=== PATIENT | female | born 1950 | race Caucasian/White ===

== ENCOUNTER → 2023-06-17 12:29 | Outpatient (REF) | payer MEDICARE, BC, SELFPAY | LOC: RAD 12:29 | PROVIDERS: ATTENDING PHYSICIAN Nurse Practitioner Family | DX: Z04.3 Encounter for examination and observation following other accident (principal); W00.9XXA Unspecified fall due to ice and snow, initial encounter; M47.816 Spondylosis without myelopathy or radiculopathy, lumbar region | CPT/HCPCS: 72110; 72220 ==

== ENCOUNTER → 2023-09-24 15:26 | Outpatient (REF) | payer MEDICARE, BC, SELFPAY | LOC: WDC 15:26 | PROVIDERS: ATTENDING PHYSICIAN Nurse Practitioner Family; FAMILY PHYSICIAN Family Medicine | DX: Z12.31 Encounter for screening mammogram for malignant neoplasm of breast (principal) | CPT/HCPCS: 77063; 77067 ==

== ENCOUNTER 2024-07-02 10:45 | Emergency (ER) | payer MEDICARE, BC, SELFPAY ==
[2024-07-02 11:07] VITALS: BP 144/80
[2024-07-02 11:31] LABS: % Basophils 0.2 % (0-2); % Eosinophils 0.8 % (0-6); % Immature Granulocytes 0.3 % (0-0.5); % Lymphocytes 11.6 % (20.5-51.1); % Monocytes 7.3 % (1.7-9.3); % Neutrophils 79.8 % (42.2-75.2); Absolute Eosinophils 0.1 10^3/uL (0-0.7); Absolute Monocytes 0.6 10^3/uL (0.1-0.6); Hemoglobin 13.4 g/dL (12.0-16.0); Mean Corp Hgb Conc. 33.5 g/dL (33.0-37.0); Mean Corpuscular Hgb 31.3 pg (27.0-31.0); Mean Corpuscular Volume 93.5 fL (81.0-99.0); Nucleated Red Blood Cells % 0 %; Platelet Count 198 10^3/uL (130-400); Red Blood Cell Count 4.28 10^6/uL (4.20-5.40); Red Cell Dist. Width 12.3 % (11.5-14.5); White Blood Cell Count 8.7 10^3/uL (4.8-10.8)
[2024-07-02 11:36] LABS: Urine Albumin Negative (Neg - Trace); Urine Bilirubin Negative (Negative); Urine Character Clear (Clear); Urine Color Yellow; Urine Glucose Negative (Negative); Urine Ketone Negative (Negative); Urine Leukocyte Negative (Negative); Urine Nitrite Negative (Negative); Urine Occult Blood 2+ (Negative); Urine Urobilinogen Negative (Neg - 1+)
[2024-07-02 11:44] LABS: ALT (SGPT) 21 U/L (0-35); AST (SGOT) 21 U/L (14-36); Albumin 4.7 g/dl (3.5-5.0); Alkaline Phosphatase 74 U/L (38-126); Blood Urea Nitrogen 10 mg/dl (7-17); Calcium 9.6 mg/dl (8.4-10.2); Carbon Dioxide 32 mmol/L (22-30); Chloride 95 mmol/L (98-107); Glucose 101 mg/dl (70-99); Lipase 43 U/L (23-300); Potassium 4.1 mmol/L (3.5-5.1); Sodium 134 mmol/L (135-145); Total Bilirubin 0.5 mg/dl (0.2-1.3); Total Protein 7.4 g/dl (6.3-8.2); eGFR > 60.00
[2024-07-02 11:45] LABS: Urine Bacteria Few (Negative); Urine Red Blood Cell 0-2 /HPF (0-2); Urine Squamous Cell 0-2 /LPF (Few); Urine White Cell 0-2 /HPF (0-5)
--- NOTE | 2024-07-02 12:08 | ED.GENMED ---
History of Present Illness
General
Chief Complaint: Abdominal Pain
Source: patient
Exam Limitations: none
Time Seen by Provider: 07/02/24 11:53
History of Present Illness
History of Present Illness:
73yoF with a history of hypertension, hyperlipidemia, and hypothyroidism presenting with her for evaluation of abdominal pain. Patient has not been feeling well over the past week or so. She was experiencing some chest tightness and
shortness of breath but this has resolved. She also has not had much of an appetite. She has had loose stools for at least several weeks. She woke up this morning around 3:45 AM with a sharp pain in her left lower abdomen. The pain has been
constant since then but has since subsided and is currently a dull pain. She currently rates her pain as a 3-4/10 in severity. No prior history of similar pains in the past. She denies any fevers, nausea, vomiting, or dysuria. No previous
abdominal surgeries. She had a colonoscopy about 8 years ago which was reportedly normal.
Past History
Past History
ED Past Medical History: Hypercholesterolemia, Hypothyroidism, Psychiatric and Other (ANNITA)
Social History
Tobacco: Non-smoker
Alcohol: Occasional
Drug: None
Personal:
Living: with family
Employment: Retired
Family History
Family History: Other
Phy Exam
General Physical Exam
General Presentation: well appearing and no apparent distress
General age: appears stated age
General Skin: warm and dry
General Habitus: normal
General Mental: alert
ENT Exam
ENT Exam: normocephalic
Cardiovascular Exam
Cardiovascular Exam: regular rate/rhythm and no murmur
Pulmonary Exam
Pulmonary Exam: lungs clear, no respiratory distress, no rales, no crackles and no rhonchi
Gastrointestinal Exam
Gastrointestinal Exam: soft, non distended and other (+Tenderness to LLQ. Abdomen soft, non-distended. No rebound or guarding. )
Neurological Exam
Neurological Exam: alert
[place] Coma Scale
Eye Opening: Spontaneous
Verbal Response: Oriented
Motor Response: Obeys Commands
GCS Total Score: 15
Skin Exam
Skin Exam: normal color and warm/dry
Psychiatric Exam
Psychiatric Exam: normal mood/affect
Course
Orders/Labs/Results
Orders:
Orders
07/02/24 11:18
Complete Blood Count/With Diff Urgent
Comprehensive Metabolic Panel Urgent
Lipase Urgent
Urinalysis Reflex To Culture Urgent
Date Specimen was Collected: 07/02/24
Time Specimen was Collected: 11:10
Urine Microscopic Reflex Cult Urgent
07/02/24 12:06
Electrocardiogram (*1) Urgent
Reason for Study: Chest Pain
EKG- Treatment ONCE
Iohexol [Omnipaque] See Protocol PO NOW STA
CR Chest - 2 Views Urgent
Comment:
Reason For Exam: SOB
07/02/24 12:07
CT Abd/pel W Iv And Oral Contr Urgent
Comment:
Reason For Exam: LLQ pain
07/02/24 12:12
0.9% Sodium Chloride 500 ml [Nss] 500 ml IV BOLUS
07/02/24 13:09
COVID-19 Antigen Urgent
Source: Nasal Swab
Influenza A+B Rapid Molecular Urgent
CABRERA Source: Nasal Swab
Specimen Description:
07/02/24 15:48
Troponin I Urgent
Abnormal Lab Results
07/02/24
11:18
MCH 31.3 H pg
(27.0-31.0)
Absolute Neuts (auto) 7.0 H 10^3/uL
(1.4-6.5)
Absolute Lymphs (auto) 1.0 L 10^3/uL
(1.2-3.4)
Neutrophils % 79.8 H %
(42.2-75.2)
Lymphocytes % 11.6 L %
(20.5-51.1)
Sodium 134 L mmol/L
(135-145)
Chloride 95 L mmol/L
(98-107)
Carbon Dioxide 32 H mmol/L
(22-30)
Creatinine 0.5 L mg/dL
(0.6-1.0)
Glucose 101 H mg/dl
(70-99)
Ur Occult Blood Reflex 2+ A
(Negative)
Urine Bacteria (Reflex) Few A
(Negative)
07/02/24 11:18
07/02/24 11:18
Vital Signs
Initial and Last Documented VS:
Initial Vital Signs
Temp Pulse Resp BP Pulse Ox
98.5 F 72 18 144/80 98
07/02/24 11:07 07/02/24 11:07 07/02/24 11:07 07/02/24 11:07 07/02/24 11:07
Last Documented Vital Signs
Temp Pulse Resp BP Pulse Ox
98.4 F 82 16 129/72 97
07/02/24 17:00 07/02/24 17:00 07/02/24 17:00 07/02/24 16:00 07/02/24 17:00
MDM/Problems Addressed
Differential Diagnosis Includes:
73yoF here with LLQ pain that began this morning. Also has not been feeling well and has had a poor appetite this week. No fevers. VSS. She is well appearing in no distress. No signs of peritonitis on abdominal exam. Differential diagnosis includes
but is not limited to: diverticulitis, colitis, kidney stone, UTI, malignancy, viral illness
Initial ED plan: Check abdominal labs, troponin/EKG, COVID/flu swab, UA, and CT abdomen. IV fluid bolus.
*EKG
Interpreted by ED Provider?: Yes
EKG Intrepretation Date: 07/02/24
Heart Rate: 64
Rate: normal
Rhythm: sinus
[place]: normal axis
Interval: normal interval
QRS Pattern: normal QRS
Ischemia: no ischemia
*Critical Care Note
Total Time (30-74mins, 75-104mins- exclusive of procedures): Not Applicable
Update Note
Update Note:
Labs overall unremarkable including normal white count, renal function, LFTs. EKG shows NSR without ischemic changes and troponin WNL. Viral testing negative. No signs of infection on UA. CT abdomen shows acute diverticulitis. No evidence of abscess
or perforation. She was started on a course of Augmentin. Advised clear liquid diet until pain improves. Advised f/u with PCP and GI. Strict ED return precautions discussed. Patient in agreement with plan and was discharged in stable condition.
ED Attending Note
-
Portions of this chart may have been created with voice recognition software.� Occasional wrong word or��sound alike� substitutions may have occurred due to the inherent limitations of voice recognition software.
Discharge Plan
Departure
Patient Disposition: Home (Routine Discharge)
Date of Disposition: 07/02/24
Time of Disposition: 16:35
Patient with high blood pressure during this ER visit?: No
Discharge Problem:
Acute diverticulitis
Instructions: Clear Liquid Diet, Diverticulitis (DC)
Prescriptions:
New
amoxicillin-pot clavulanate 875-125 mg tablet
1 tab PO BID Qty: 20 0RF
No Action
multivitamin 1 EACH tablet
1 ea PO DAILY
atorvastatin [Lipitor] 80 MG tablet
80 mg PO HS
clonazepam 1 MG tablet
1 mg PO HS
aspirin [Ecotrin Low Strength] 81 MG tablet,delayed release (DR/EC)
81 mg PO DAILY
acizbphuvh-mjawzrujlitbq-nitt 1 EACH tablet
1 ea PO TID PRN (Reason: migraines)
levothyroxine 125 MCG tablet
125 mcg PO DAILY
eletriptan [Relpax] 40 MG tablet
40 mg PO TID PRN (Reason: migraines)
calcium carbonate-vitamin D3 1 EACH tablet
2 ea PO DAILY
fluconazole 100 MG tablet
100 mg PO DAILY Qty: 13 0RF
famotidine 20 MG tablet
20 mg PO BID Qty: 30 0RF
amoxicillin-pot clavulanate 1 TABLET tablet
1 tab PO Q12 Qty: 6 0RF
prednisone 10 MG tablet
10 mg PO .TAPER Qty: 45 0RF
Rx Instructions:
Take 50mg daily x 7days, 40mg daily x7days,
30mg daily x7days, 20mg daily x7days,
10mg daily --stay on until pulm gives more direction
promethazine-codeine 5 ML syrup
5 ml PO Q4HPRN PRN (Reason: cough) Qty: 1 0RF
Rx Instructions:
has at home
Referrals:
Dorothy Mars, [Family Provider] -
Activity Restrictions/Additional Instructions:
Take antibiotics as prescribed. Eat a clear liquid diet until pain improves.
Please follow-up with your family doctor and rubber goods inspector. Return to the ER with any worsening symptoms, fevers, chills, or severe pain.
Interventions
Interventions:
*Risk Screen - Suicide Last Done: 07/02/24 11:07
*General Assessment Last Done: 07/02/24 11:07
*Neglect/Abuse Screening Last Done: 07/02/24 13:23
ED- Fall Risk Assessment Last Done: 07/02/24 12:44
*ED COVID-19 Vaccine History Last Done: 07/02/24 11:07
*Nursing Disposition Last Done: 07/02/24 17:00
LT-Jdkvms-Ilzwylhdrq Assessment Last Done: 07/02/24 12:44
Discharge Date and Time
Discharge Date/Time: 07/02/24 17:01
Print Language: JAPANESE
[2024-07-02 12:44] VITALS: BMI 27.2
[2024-07-02 12:58] VITALS: BP 122/72
[2024-07-02 13:00] VITALS: BP 121/70
[2024-07-02] MEDS: OMNIPAQUE 50 ML PO (13:01)
[2024-07-02] MEDS: NSS 500 IV (13:02)
[2024-07-02 13:43] LABS: COVID-19 Antigen Negative (Negative)
[2024-07-02 15:42] VITALS: BP 147/74
[2024-07-02 16:00] VITALS: BP 129/72
[2024-07-02 16:20] LABS: Troponin I < 0.012 ng/ml
--- NOTE | 2024-07-02 17:00 | EDRN ---
Reviewed discharge instructions with patient. Verbalized understanding. Ambulated with steady gait to the lobby.
== END 2024-07-02 17:01 | disposition home or self-care (01) ==
LOC: EMR 10:45
PROVIDERS: Emergency Medicine; Physician Assistant; EMERGENCY PHYSICIAN Student in an Organized Health Care Education/Training Program; FAMILY PHYSICIAN Family Medicine
DX: K57.32 Diverticulitis of large intestine without perforation or abscess without bleeding (principal); I10 Essential (primary) hypertension; E78.00 Pure hypercholesterolemia, unspecified; E03.9 Hypothyroidism, unspecified; G47.33 Obstructive sleep apnea (adult) (pediatric); Z11.52 Encounter for screening for COVID-19
CPT/HCPCS: 99285; 96360; 71046; 74177; 80053; 81003; 81015; 83690; 84484; 85025; 87502; 87811; 93005; Q9967

== ENCOUNTER → 2024-09-25 11:24 | Outpatient (REF) | payer MEDICARE, BC, SELFPAY | LOC: WDC 11:24 | PROVIDERS: ATTENDING PHYSICIAN Family Medicine | DX: Z12.31 Encounter for screening mammogram for malignant neoplasm of breast (principal) | CPT/HCPCS: 77063; 77067 ==

== ENCOUNTER → 2024-10-12 09:05 | Outpatient (REF) | payer MEDICARE, BC, SELFPAY | LOC: WDC 09:05 | PROVIDERS: ATTENDING PHYSICIAN Family Medicine | DX: R92.8 Other abnormal and inconclusive findings on diagnostic imaging of breast (principal) | CPT/HCPCS: 76642 ==

== ENCOUNTER → 2024-10-19 08:40 | Outpatient (REF) | payer MEDICARE, BC, SELFPAY ==
--- NOTE | 2024-10-19 13:56 | OID.BR.INTR ---
[facility] Breast Navigator - Initial
- -
Date of Contact: 10/19/24
Met with patient. Patient given written information on navigator services and support services available at [facility]. Will follow up as needed per protocol.
== END ==
LOC: WDC 08:40
PROVIDERS: ATTENDING PHYSICIAN Family Medicine
DX: N63.10 Unspecified lump in the right breast, unspecified quadrant (principal); N63.11 Unspecified lump in the right breast, upper outer quadrant
CPT/HCPCS: 88305; 19083; 88341; 88342; 88360; A4648

== ENCOUNTER 2024-10-28 06:27 | Day surgery (SDC) | payer MEDICARE, BC, SELFPAY | END 2024-10-28 14:45 | disposition home or self-care (01) | LOC: GI 06:27 | PROVIDERS: ATTENDING PHYSICIAN Specialist | DX: Z12.11 Encounter for screening for malignant neoplasm of colon (principal); K57.30 Diverticulosis of large intestine without perforation or abscess without bleeding; K62.1 Rectal polyp | CPT/HCPCS: 45380; 88305 ==

== ENCOUNTER → 2024-11-02 19:10 | Outpatient (REF) | payer MEDICARE, BC, SELFPAY | LOC: MRI 3T 19:10 | PROVIDERS: ATTENDING PHYSICIAN Surgery; FAMILY PHYSICIAN Family Medicine | DX: C50.411 Malignant neoplasm of upper-outer quadrant of right female breast (principal); Z17.0 Estrogen receptor positive status [ER+] | CPT/HCPCS: 77049; A9585 ==

== ENCOUNTER → 2024-11-26 08:03 | Outpatient (REF) | payer MEDICARE, BC, SELFPAY | LOC: WDC 08:03 | PROVIDERS: ATTENDING PHYSICIAN Surgery | DX: C50.411 Malignant neoplasm of upper-outer quadrant of right female breast (principal) | CPT/HCPCS: 19285; 19286; 38792; 76942; A4648; A9541 ==

== ENCOUNTER → 2024-11-26 14:01 | Outpatient (REF) | payer MEDICARE, BC, SELFPAY ==
[2024-11-26 15:48] LABS: Sodium 133 mmol/L (135-145)
== END ==
LOC: REG 14:01
PROVIDERS: ATTENDING PHYSICIAN Surgery; FAMILY PHYSICIAN Family Medicine
DX: Z01.812 Encounter for preprocedural laboratory examination (principal); E87.1 Hypo-osmolality and hyponatremia
CPT/HCPCS: 36415; 84295

== ENCOUNTER 2024-11-27 06:21 | Day surgery (SDC) | payer MEDICARE, BC, SELFPAY ==
[2024-11-16 14:00] VITALS: BMI 27.0
[2024-11-27 06:25] VITALS: BP 138/78
[2024-11-27] MEDS: TYLENOL 1000 MG PO (06:35)
[2024-11-27] MEDS: NORMOSOL-R/PLASMALYTE-A 1000 IV (06:35)
[2024-11-27] MEDS: LOVENOX 40 MG SC (06:36)
[2024-11-27 06:41] VITALS: BMI 27.0
--- NOTE | 2024-11-27 07:08 | W.SUR.PREOP ---
Pre-Operative Surgical Note
-
I have examined this patient prior to the performance of the scheduled procedure.
The patient's condition is unchanged from the time of the current History and
Physical and the patient is able to undergo the scheduled procedure.
--- NOTE | 2024-11-27 09:02 | W.IMMPOSTOP ---
Surgical Immed Post Op Note
-
Primary Surgeon: Evelia
Assisting Surgeon: None
Pre-op Diagnosis: Right breast ca
Post-op Diagnosis: Right breast ca
Procedure Performed: Right localized lumpectomy, sentinel lymph node mapping and biopsy
Anesthesia Type: TIVA
Specimen / Cultures: Right lumpectomy, margins, sentinel nodes
Estimated Blood Loss: 10cc
Complications: None
Operative Findings: None
--- NOTE | 2024-11-27 09:03 | OR.RPT ---
Operative Report
Operative Report
Date of procedure: 11/27/2024
Surgeon: Evelia
Preoperative diagnosis: Right breast carcinoma
Postoperative diagnosis: Right breast carcinoma
Procedure: Right localized lumpectomy and sentinel lymph node mapping and biopsy
Patient is a 74-year-old female who had image detected right breast carcinoma that was multifocal. She presents for right localized lumpectomy and sentinel lymph node mapping and biopsy with possible oncoplastic closure. On the day prior to the
procedure she presented to the [place] [facility] center. 2 Jacque account group supervisor reflector's were placed at the 2 tumor sites and technetium radiotracer was injected into the breast parenchyma.
On the day of the procedure the patient presented to the same-day surgical services suite. She was prepped and verified site and procedure. DVT and antibiotic prophylaxis were provided. She was transferred to the operating room and in the supine
position intravenous sedation was delivered. Right breast and axilla were prepped and draped in the usual sterile fashion and all tissues were anesthetized with 1% lidocaine plain. An appropriate timeout procedure had been performed by all team
members.
Attention was first turned to the axilla where an curvilinear incision was made inferior to the hairline overlying the area of highest external gamma count. Dissection was carried through clavipectoral fascia using the cautery. Using the neoprobe
gamma probe to sentinel node packets were encountered and excised. Feeding vessels to the and its were controlled with 3-0 silk tie. After the removal of the nodes there was a greater than 4 fold reduction of background count. Hemostasis was
verified and Marcaine 0.5% plain was instilled. Wound was closed using simple interrupted 3-0 plain the deep intermediate and subcutaneous tissue and skin was closed with a running subcuticular 4-0 Monocryl
Then attention was turned to the lumpectomy where a curvilinear incision was made between the 2 Jacque signal sites. Skin flaps were elevated in the oncoplastic plane using the cautery and a wide lumpectomy was performed. Both reflectors signaled
within the specimen. Time out of body was noted and the specimen was oriented for the pathologist. Specimen radiography confirmed the presence of clip and 2 reflectors within it. Additional margins were harvested for permanent analysis from the
posterior, medial, superior, lateral, inferior, and anterior dimensions. These were oriented as well. Hemostasis was maintained in the lumpectomy site. Hemoclips were placed in the resection cavity and a portion of Surgicel was placed in the
lumpectomy bed. Marcaine 5% plain was instilled into this tissue. This wound was closed in the same fashion as the axillary incision. Surgical glue and sterile compressive dressings were applied. All sponge needle and instrument counts were
correct and the patient was transferred to the recovery room in stable condition.
([id number])
[place] Node Bx Breast Cancer
[place] Node Bx Breast Cancer
Operation performed with curative intent: Yes
Tracer(s) to ID [place] Nodes in Non-Neoadjuvant setting: Radioactive Tracer
Tracer(s) to ID [place] Nodes in the Neoadjuvant Setting: N/A
All nodes at end of dye-filled Lymphatic Channel removed: N/A
All Significantly Radioactive Nodes were removed: Yes
All Palpably Suspicious Nodes were Removed: Yes
Bx Proven Pos Nodes Marked Prior to Chemo ID'd & Removed: N/A
[2024-11-27 09:05] VITALS: BP 116/76
[2024-11-27 09:15] VITALS: BP 125/79
[2024-11-27 09:30] VITALS: BP 132/79
[2024-11-27] MEDS: ROXICODONE 10 MG PO (09:31)
[2024-11-27 09:45] VITALS: BP 133/83
== END 2024-11-27 10:05 | disposition home or self-care (01) ==
LOC: SDS 06:21
PROVIDERS: ATTENDING PHYSICIAN Surgery; FAMILY PHYSICIAN Family Medicine
DX: C50.911 Malignant neoplasm of unspecified site of right female breast (principal); Z17.0 Estrogen receptor positive status [ER+]
CPT/HCPCS: 38525; 19301; 38900; 76098; 88305; 88307; 88341; 88342; 88360

== ENCOUNTER → 2025-01-01 11:27 | Outpatient (REF) | payer MEDICARE, BC, SELFPAY | LOC: RAD 11:27 | PROVIDERS: ATTENDING PHYSICIAN Internal Medicine Hematology & Oncology; FAMILY PHYSICIAN Family Medicine | DX: M85.9 Disorder of bone density and structure, unspecified (principal); C50.411 Malignant neoplasm of upper-outer quadrant of right female breast; M85.88 Other specified disorders of bone density and structure, other site | CPT/HCPCS: 77080 ==

== ENCOUNTER → 2025-03-25 10:55 | Outpatient (REF) | payer MEDICARE, BC, SELFPAY | LOC: RAD 10:55 | PROVIDERS: ATTENDING PHYSICIAN Family Medicine | DX: M54.2 Cervicalgia (principal); G89.29 Other chronic pain | CPT/HCPCS: 72050 ==